=== PATIENT | female | born 1945 | race Hispanic/Latino ===

== ENCOUNTER 2016-10-14 19:10 | Emergency (ER) | payer MEDICAID, MEDICARE ==
[2016-10-14 19:46] VITALS: BP 125/73; PULSE 99; RESP 20; TEMP 98.9; O2SAT 94
== END 2016-10-14 19:50 | disposition left against medical advice (07) ==
LOC: C.ER 19:10
DX: M79.89 Other specified soft tissue disorders (principal); Z02.9 Encounter for administrative examinations, unspecified

== ENCOUNTER 2016-10-24 04:13 | Emergency (ER) | payer MEDICARE ==
[2016-10-24 04:22] VITALS: BMI 28.8
--- NOTE | 2016-10-24 04:22 | C.PDOC ---
History Of Present Illness Patient presents to the ER with a complaint of SOB over the past 2 days. Patient states she still smokes a pack of cigarettes a days for the last 57 years. Patient is currently speaking in complete sentences; denies fever, chills , nausea, or vomiting. Time Seen by Provider: 10/24/16 04:19 History Per: Patient Onset/Duration Of Symptoms: Days Current Symptoms Are (Timing): Still Present Initiating Event: Other (Not known) Current Respiratory Medications: None Associated Symptoms: denies: Fever, Chills, Chest Pain Recent travel outside of the [place]: No Past Medical History Reviewed: Historical Data, Nursing Documentation, Vital Signs Vital Signs: Last Vital Signs Temp 98.4 F 10/24/16 04:24 Pulse 110 H 10/24/16 06:20 Resp 14 10/24/16 06:20 BP 112/67 10/24/16 04:24 Pulse Ox 94 L 10/24/16 05:48 - Medical History PMH: Hyperlipidemia Surgical History: No Surg Hx Family History: States: No Known Family Hx - Social History Hx Alcohol Use: No Hx Substance Use: No - Immunization History Hx Tetanus Toxoid Vaccination: No Hx Influenza Vaccination: No Hx Pneumococcal Vaccination: No Review Of Systems Constitutional: Negative for: Fever, Chills Cardiovascular: Negative for: Chest Pain, Palpitations Respiratory: Positive for: Shortness of Breath Gastrointestinal: Negative for: Nausea, Vomiting Physical Exam - Physical Exam Appears: Non-toxic Skin: Warm, Dry Oral Mucosa: Moist Chest: Symmetrical, No Tenderness Cardiovascular: Rhythm Regular, No Murmur Respiratory: No Rales, Rhonchi (Scattered at bases), No Wheezing Gastrointestinal/Abdominal: Soft, No Tenderness Extremity: Pedal Edema (Bilateral) Neurological/Psych: Oriented x3 ED Course And Treatment - Laboratory Results Result Diagrams: 10/24/16 04:45 10/24/16 04:45 ECG: Interpreted By Me, Viewed By Me ECG Rhythm: Sinus Rhythm (73), Nonspecific Changes O2 Sat by Pulse Oximetry: 94 Pulse Ox Interpretation: Normal - Radiology CXR: Interpreted by Me, Viewed By Me CXR Interpretation: No: Infiltrates, Fracture, Pnemothorax Progress Note: EKG, blood work, CXR, and urinalysis ordered. Solumedrol and nebulizer treatment administered. Reevaluation Time: 06:25 Reassessment Condition: Improved Disposition Counseled Patient/Family Regarding: Studies Performed, Diagnosis, Need For Followup, Rx Given, Smoking Cessation - Disposition Referrals: [facility] at [facility] [Outside] Disposition: HOME/ ROUTINE Disposition Time: 04:21 Condition: FAIR Prescriptions: Albuterol HFA [Ventolin HFA 90 mcg/actuation (8 g)] 2 puff IH [id number] #1 puff Azithromycin [Zithromax Tri-Albino] 500 mg PO DAILY #3 tablet Instructions: Alcohol Intoxication (ED) - Clinical Impression Clinical Impression: Alcohol abuse, Cough - Scribe Statement The provider has reviewed the documentation as recorded by the Scribe Xander Aponte All medical record entries made by the Scribe were at my direction and personally dictated by me. I have reviewed the chart and agree that the record accurately reflects my personal performance of the history, physical exam, medical decision making, and the department course for this patient. I have also personally directed, reviewed, and agree with the discharge instructions and disposition.
[2016-10-24 04:27] VITALS: TEMP 98.4
[2016-10-24] MEDS: Albuterol-Ipratrop 3 mg / 0.5 (3 ml) UD IH SCH ×3 (04:45→05:14)
[2016-10-24 04:47] LABS: BASO # 0.1 K/uL (0.0-0.2); BASO % 0.9 % (0.0-2.0); EOS # 0.1 K/uL (0.0-0.7); EOS % 0.8 % (0.0-4.0); LYMPH # 1.5 K/uL (1.0-4.3); LYMPH % 18.9 % (20.0-40.0); MEAN CELL VOLUME 92.5 fL (81.0-99.0); MEAN CORPUSCULAR HEMOGLOBIN 31.3 pg (27.0-31.0); MEAN CORPUSCULAR HGB CONC 33.8 g/dL (33.0-37.0); MEAN PLATELET VOLUME 9.2 fL (7.2-11.7); MONO # 0.5 K/uL (0.0-0.8); MONO % 6.6 % (0.0-10.0); NRBC % 0.1 % (0.0-2.0); RED CELL DISTRIBUTION WIDTH 20.2 % (11.5-14.5); WHITE BLOOD COUNT 7.8 K/uL (4.8-10.8)
[2016-10-24] MEDS ORDERED: Albuterol-Ipratrop 3 mg / 0.5 (3 ml) UD ONE ×3 (04:55)
[2016-10-24 04:56] LABS: CHLORIDE 103 mmol/L (98-107); SODIUM 140 mmol/L (132-148)
[2016-10-24 04:57] LABS: POTASSIUM 4.5 mmol/L (3.6-5.2)
[2016-10-24 04:59] LABS: ALB/GLOB RATIO 1.1 (1.0-2.1); ALKALINE PHOSPHATASE 82 U/L (38-126); ALT/SGPT 29 U/L (9-52); AST/SGOT 40 U/L (14-36); BILIRUBIN,TOTAL 0.5 mg/dL (0.2-1.3); BLOOD UREA NITROGEN 12 mg/dL (7-17); CARBON DIOXIDE 21 mmol/L (22-30); GFR AFRICAN-AMERICAN > 60; GLUCOSE,RANDOM 97 mg/dL (65-105); TOTAL PROTEIN 6.6 g/dL (6.3-8.3)
[2016-10-24 05:00] LABS: ALCOHOL SERUM 228 mg/dl (0-10); CALCIUM 8.5 mg/dl (8.6-10.4)
[2016-10-24 06:23] VITALS: RESP 14
[2016-10-24 06:30] VITALS: BP 126/94; PULSE 100; O2SAT 96
--- NOTE | 2016-10-24 07:27 | RAD ---
PROCEDURE: CHEST RADIOGRAPH, 1 VIEW HISTORY: SOB COMPARISON: None available. FINDINGS: LUNGS: No infiltrate. Linear atelectasis is seen at the inferior left lung zone laterally versus fibrosis minimally.. PLEURA: No pneumothorax or pleural fluid seen. Limited elevation left hemidiaphragm is identified. CARDIOVASCULAR: Cardiac silhouette appears prominent. No pulmonary vascular derangement. OSSEOUS STRUCTURES: No significant abnormalities. VISUALIZED UPPER ABDOMEN: Normal. OTHER FINDINGS: None. IMPRESSION: No acute infiltrate or pleural effusion identified. Prominent cardiac silhouette identified without pulmonary vascular derangement.
--- NOTE | 2016-10-26 12:29 | CARD ---
APPROVED REPORT EKG Measurement Heart [id number] 162P32 [id number] <Conclusion> Normal sinus rhythm Normal ECG
== END 2016-10-24 06:37 | disposition home or self-care (01) ==
LOC: C.ER 04:13
DX: F10.120 Alcohol abuse with intoxication, uncomplicated (principal); Y90.7 Blood alcohol level of 200-239 mg/100 ml; R05 Cough; F17.210 Nicotine dependence, cigarettes, uncomplicated
CPT/HCPCS: 71010; 80053; 83880; 84484; 85025; 93005; 94640; 96374; 99284; G0480; J2930

== ENCOUNTER 2017-04-16 10:03 | Emergency (ER) | payer MEDICARE ==
[2017-04-16 10:04] VITALS: BMI 28.8
[2017-04-16] MEDS ORDERED: Sodium Chloride 0.9% 1,000 ML IV ONE (11:04)
[2017-04-16 11:34] LABS: BASO % 0.5 % (0.0-2.0); EOS % 0.1 % (0.0-4.0); HEMOGLOBIN 12.6 g/dL (11.0-16.0); LYMPH # 1.1 K/uL (1.0-4.3); LYMPH % 13.5 % (20.0-40.0); MEAN CORPUSCULAR HEMOGLOBIN 31.2 pg (27.0-31.0); MEAN CORPUSCULAR HGB CONC 35.7 g/dL (33.0-37.0); MEAN PLATELET VOLUME 9.9 fL (7.2-11.7); MONO # 0.3 K/uL (0.0-0.8); MONO % 4.1 % (0.0-10.0); NEUT # 6.5 K/uL (1.8-7.0); NEUT % 81.8 % (50.0-75.0); RBC 4.04 Mil/uL (3.80-5.20); RED CELL DISTRIBUTION WIDTH 14.5 % (11.5-14.5)
[2017-04-16 11:42] LABS: ALB/GLOB RATIO 1.2 (1.0-2.1); ALBUMIN 4.2 g/dL (3.5-5.0); CALCIUM 9.6 mg/dl (8.6-10.4); GFR AFRICAN-AMERICAN > 60; GFR NON-AFRICAN AMERICAN > 60; LIPASE 44 U/L (23-300)
[2017-04-16 11:43] LABS: MEAN CELL VOLUME 87.5 fL (81.0-99.0)
[2017-04-16 11:45] LABS: ALT/SGPT 17 U/L (9-52); AST/SGOT 23 U/L (14-36); BLOOD UREA NITROGEN 16 mg/dL (7-17)
--- NOTE | 2017-04-16 11:56 | C.PDOC ---
History Of Present Illness 72-year-old female, presents to the emergency department with complaints of nausea, associated with several episodes of non-bloody/non-bilious vomiting since 03:00 this morning. Patient notes mild diffuse abdominal pain. Denies fever, cough, sore throat, chills, chest pain, shortness of breath, or any other associated symptoms. No other complaints at this time. Time Seen by Provider: 04/16/17 10:22 Chief Complaint (Nursing): GI Problem History Per: Patient History/Exam Limitations: no limitations Onset/Duration Of Symptoms: Hrs Current Symptoms Are (Timing): Still Present Severity: Moderate Past Medical History Reviewed: Historical Data, Nursing Documentation, Vital Signs Vital Signs: Last Vital Signs Temp Pulse 62 04/16/17 12:43 Resp 16 04/16/17 12:43 BP 120/88 04/16/17 12:43 Pulse Ox 99 04/16/17 12:43 - Medical History PMH: Hyperlipidemia Surgical History: Cholecystectomy Family History: States: No Known Family Hx - Social History Hx Alcohol Use: No Hx Substance Use: No - Immunization History Hx Tetanus Toxoid Vaccination: No Hx Influenza Vaccination: No Hx Pneumococcal Vaccination: No Review Of Systems Except As Marked, All Systems Reviewed And Found Negative. Constitutional: Negative for: Fever, Chills Cardiovascular: Negative for: Chest Pain, Palpitations Respiratory: Negative for: Shortness of Breath Gastrointestinal: Positive for: Nausea, Vomiting, Abdominal Pain. Negative for : Diarrhea Genitourinary: Negative for: Dysuria, Vaginal Discharge, Vaginal Bleeding, Pelvic Pain Musculoskeletal: Negative for: Back Pain Skin: Negative for: Rash Neurological: Negative for: Weakness, Numbness, Headache, Dizziness Physical Exam - Physical Exam Appears: Non-toxic, No Acute Distress Skin: Normal Color, Warm, Dry, No Rash Head: Atraumatic, Normacephalic Eye(s): bilateral: Normal Inspection, PERRL, EOMI Nose: Normal Oral Mucosa: Moist Lips: Normal Appearing Neck: Normal ROM, Supple Chest: Symmetrical Cardiovascular: Rhythm Regular, No Friction Rub, No Murmur Respiratory: Normal Breath Sounds, No Accessory Muscle Use Gastrointestinal/Abdominal: Bowel Sounds (acute), Soft, No Tenderness, No Guarding, No Rebound Back: Normal Inspection, No CVA Tenderness Extremity: Normal ROM, No Swelling Neurological/Psych: Oriented x3, Normal Speech, Normal Cranial Nerves, Normal Motor Gait: Steady ED Course And Treatment - Laboratory Results Result Diagrams: 04/16/17 11:27 04/16/17 11:27 O2 Sat by Pulse Oximetry: 99 (on RA) Pulse Ox Interpretation: Normal Medical Decision Making Medical Decision Making: Plan: * Labs * XR Obstructive Series * Reassess and Disposition Temp: 98.8. Patient with normal vitals and physical exam is WNLs. Normal Lactic acid level and no evidence of sepsis. On re-exam, the patient reports improvement of symptoms. Lungs are CTA, heart is RRR, abdomen is soft, non-tender and is tolerating PO well. Ambulatory in the ED with steady gait. Follow up with the medical doctor within 1-2 days without fail. Return if worsened. Disposition - Disposition Referrals: [facility] at [facility] [Outside] Disposition: HOME/ ROUTINE Disposition Time: 12:48 Condition: GOOD Additional Instructions: Follow up with the medical doctor within 1-2 days without fail. Return if worsened. Prescriptions: Acetaminophen [Tylenol] 325 mg PO Q6 PRN #30 tab PRN Reason: Pain, Mild (1-3) Instructions: Viral Syndrome (DC) Forms: [employer] (Citizen [place]) - POA Present On Arrival: None - Clinical Impression Clinical Impression: Viral syndrome, Vomiting - Scribe Statement The provider has reviewed the documentation as recorded by the Scribe (Mike Huddleston) All medical record entries made by the Scribe were at my direction and personally dictated by me. I have reviewed the chart and agree that the record accurately reflects my personal performance of the history, physical exam, medical decision making, and the department course for this patient. I have also personally directed, reviewed, and agree with the discharge instructions and disposition.
--- NOTE | 2017-04-16 12:23 | RAD ---
PROCEDURE: Radiographs of the chest and abdomen (obstructive series) HISTORY: vomiting, abd pain COMPARISON: No prior. TECHNIQUE: AP radiograph of the chest, with upright and supine radiographs of the abdomen. FINDINGS: CHEST: Lungs: Clear. Cardiovascular: Normal size heart. No pulmonary vascular congestion. Pleura: No pleural fluid. No pneumothorax. Other findings: None. ABDOMEN AND PELVIS: Bowel: Unremarkable bowel gas pattern. No evidence of mechanical obstruction. Free air: None. Bones: Unremarkable. Other findings: None. IMPRESSION: Unremarkable radiographs of chest and abdomen. No evidence of mechanical bowel obstruction.
[2017-04-16] MEDS ORDERED: Alum-Mag Hydrox-Simethicone Susp (30 mL) PO STA (12:30)
[2017-04-16 12:43] VITALS: BP 120/88; PULSE 62; RESP 16; O2SAT 99
== END 2017-04-16 12:56 | disposition home or self-care (01) ==
LOC: C.ER 10:03
DX: B34.9 Viral infection, unspecified (principal); R11.10 Vomiting, unspecified; E78.5 Hyperlipidemia, unspecified
CPT/HCPCS: 74022; 80053; 83605; 83690; 85025; 96361; 96374; 96375; 99284; J2405; J7040

== ENCOUNTER 2017-04-20 13:35 | Emergency (ER) | payer MEDICARE, OTHER ==
[2017-04-20 13:35] VITALS: BMI 28.8
[2017-04-20 13:57] VITALS: BP 111/61; PULSE 93; RESP 16; TEMP 97.7; O2SAT 95
--- NOTE | 2017-04-20 14:38 | C.PDOC ---
History Of Present Illness 72 y/o female brought to ED by BLS status post falling in her apartment. Patient states she lost her balance and fell, denies any injury or pain. She admits to drinking alcohol. Patient is in no acute distress, does not want to be in ED, offers no complaints and is walking around. Time Seen by Provider: 04/20/17 14:08 Chief Complaint (Nursing): Medical Clearance History Per: Patient History/Exam Limitations: no limitations Onset/Duration Of Symptoms: Hrs Current Symptoms Are (Timing): Still Present Past Medical History Reviewed: Historical Data, Nursing Documentation, Vital Signs Vital Signs: Last Vital Signs Temp 97.7 F 04/20/17 13:40 Pulse 93 H 04/20/17 13:40 Resp 16 04/20/17 13:40 BP 111/61 04/20/17 13:40 Pulse Ox 95 04/20/17 14:52 - Medical History PMH: Depression, Hyperlipidemia Surgical History: Cholecystectomy Family History: States: No Known Family Hx - Social History Hx Alcohol Use: Yes Hx Substance Use: No - Immunization History Hx Tetanus Toxoid Vaccination: No Hx Influenza Vaccination: No Hx Pneumococcal Vaccination: No Review Of Systems Constitutional: Negative for: Fever, Chills Eyes: Negative for: Vision Change Gastrointestinal: Negative for: Nausea, Vomiting Skin: Negative for: Rash Physical Exam - Physical Exam Appears: Non-toxic, No Acute Distress Skin: Warm, Dry, No Rash Head: Atraumatic, Normacephalic Eye(s): bilateral: Normal Inspection, PERRL, EOMI Nose: Normal, No Flaring Oral Mucosa: Moist, Other (alcohol on breath) Neck: Normal ROM, Supple Chest: Symmetrical Cardiovascular: Rhythm Regular, No Murmur Respiratory: Normal Breath Sounds, No Rales, No Rhonchi, No Wheezing Gastrointestinal/Abdominal: Soft, No Tenderness, No Guarding, No Rebound Back: Normal Inspection, No Vertebral Tenderness, No Paraspinal Tenderness Extremity: Normal ROM, No Tenderness, No Deformity, No Swelling Neurological/Psych: Oriented x3, Normal Speech Gait: Steady ED Course And Treatment O2 Sat by Pulse Oximetry: 95 (RA) Pulse Ox Interpretation: Normal Medical Decision Making Medical Decision Making: Patient for medical evaluation after fall, and is ETOH Patient is already ambulatory with steady gait. She offers no complaints Accucheck ordered. Patient is stable for discharge Disposition Counseled Patient/Family Regarding: Diagnosis, Need For Followup - Disposition Disposition: HOME/ ROUTINE Disposition Time: 14:37 Condition: STABLE Additional Instructions: Follow up with your primary medical doctor or clinic in 2-5 days for further evaluation. Instructions: Effects of Alcohol on Your Health Forms: [employer] (Maori) - POA Present On Arrival: None - Clinical Impression Clinical Impression: Alcohol intoxication - [place] / [place] / Resident Statement MD/DO has reviewed & agrees with the documentation as recorded. - Scribe Statement The provider has reviewed the documentation as recorded by the Julianoibcamilla Peterson All medical record entries made by the Ilan were at my direction and personally dictated by me. I have reviewed the chart and agree that the record accurately reflects my personal performance of the history, physical exam, medical decision making, and the department course for this patient. I have also personally directed, reviewed, and agree with the discharge instructions and disposition.
== END 2017-04-20 14:46 | disposition home or self-care (01) ==
LOC: C.ER 13:35
DX: F10.129 Alcohol abuse with intoxication, unspecified (principal); Y90.9 Presence of alcohol in blood, level not specified

== ENCOUNTER 2017-12-29 19:34 | Emergency (ER) | payer MEDICARE, OTHER ==
[2017-12-29 19:35] VITALS: BMI 28.8
[2017-12-29 19:57] VITALS: RESP 18; TEMP 98
--- NOTE | 2017-12-29 20:57 | C.PDOC ---
History Of Present Illness 72 year old female with a history of smoking 3 cigarettes a day, cardiac disease and GA (10 years ago and 3 weeks ago) presents to the ED for evaluation of sudden onset of shortness of breath that began tonight. Patient reports she was watching television smoking a cigarette when the symptoms began. She notes having chronic peripheral edema and has a "machine that pumps the fluid out of my legs". Also notes she is not able to sleep flat, only with 2-3 pillows. She admits she is trying to quit smoking. Denies chest pain, headache, fever, nausea, vomiting, and any other associated symptoms. Time Seen by Provider: 12/29/17 20:32 Chief Complaint (Nursing): Shortness Of Breath History Per: Patient History/Exam Limitations: no limitations Onset/Duration Of Symptoms: Mins Current Symptoms Are (Timing): Still Present Past Medical History Reviewed: Historical Data, Nursing Documentation, Vital Signs Vital Signs: Last Vital Signs Temp 98 F 12/29/17 19:54 Pulse 95 H 12/29/17 19:42 Resp 18 12/29/17 19:56 BP 148/79 12/29/17 19:42 Pulse Ox 93 L 12/29/17 19:42 - Medical History PMH: CAD, COPD, Depression, Hyperlipidemia Denies: Diabetes, Hepatitis, HIV, HTN Other PMH: GA Surgical History: Cholecystectomy Family History: States: Unknown Family Hx - Social History Hx Tobacco Use: Yes (3 cigarettes.) Hx Alcohol Use: Yes Hx Substance Use: No - Immunization History Hx Tetanus Toxoid Vaccination: No Hx Influenza Vaccination: No Hx Pneumococcal Vaccination: No Review Of Systems Constitutional: Negative for: Fever Cardiovascular: Negative for: Chest Pain Respiratory: Positive for: Shortness of Breath Gastrointestinal: Negative for: Nausea, Vomiting Neurological: Negative for: Headache Physical Exam - Physical Exam Appears: Well, Non-toxic, No Acute Distress, Other (comfortable.) Skin: Normal Color, Warm, Dry Head: Atraumatic, Normacephalic Eye(s): bilateral: Normal Inspection Oral Mucosa: Moist Neck: Normal ROM, Supple Chest: Symmetrical, No Deformity Cardiovascular: Rhythm Regular, No Murmur Respiratory: Decreased Breath Sounds, Rales (at the base.) Gastrointestinal/Abdominal: Normal Exam, Soft, No Tenderness Extremity: Normal ROM (x4), No Tenderness, No Pedal Edema, No Calf Tenderness, Capillary Refill (less than 2 seconds.), No Deformity Pulses: Left Dorsalis Pedis: Normal, Right Dorsalis Pedis: Normal Neurological/Psych: Oriented x3, Other (speaking full sentences.) ED Course And Treatment - Laboratory Results Result Diagrams: 12/29/17 21:07 12/29/17 21:07 Lab Interpretation: No Acute Changes ECG: Interpreted By Me ECG Rhythm: 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 Patient is able to lie supine at 30 degrees with no distress.) Medical Decision Making Medical Decision Making: Plan: -EKG -Blood sent. -CXR Disposition Counseled Patient/Family Regarding: Studies Performed, Diagnosis, Need For Followup - Disposition Referrals: Karlene Kaufman MD [Non-Staff] - Disposition: HOME/ ROUTINE Disposition Time: 22:24 Condition: IMPROVED Instructions: Shortness of Breath (Dyspnea) (DC) Forms: [employer] (Bahamian) - Clinical Impression Clinical Impression: Dyspnea - Scribe Statement The provider has reviewed the documentation as recorded by the Ilan Carter Provider Attestation: All medical record entries made by the Julianoibcamilla were at my direction and personally dictated by me. I have reviewed the chart and agree that the record accurately reflects my personal performance of the history, physical exam, medical decision making, and the department course for this patient. I have also personally directed, reviewed, and agree with the discharge instructions and disposition.
[2017-12-29 21:13] LABS: BASO # 0.1 K/uL (0.0-0.2); BASO % 0.7 % (0.0-2.0); EOS # 0.1 K/uL (0.0-0.7); EOS % 1.7 % (0.0-4.0); HEMOGLOBIN 11.4 g/dL (11.0-16.0); LYMPH # 2.1 K/uL (1.0-4.3); LYMPH % 23.5 % (20.0-40.0); MEAN CELL VOLUME 87.3 fL (81.0-99.0); MEAN CORPUSCULAR HEMOGLOBIN 30.2 pg (27.0-31.0); MEAN CORPUSCULAR HGB CONC 34.6 g/dL (33.0-37.0); MEAN PLATELET VOLUME 9.6 fL (7.2-11.7); MONO # 0.6 K/uL (0.0-0.8); MONO % 6.5 % (0.0-10.0); NEUT % 67.6 % (50.0-75.0); RBC 3.79 Mil/uL (3.80-5.20); RED CELL DISTRIBUTION WIDTH 15.5 % (11.5-14.5); WHITE BLOOD COUNT 8.9 K/uL (4.8-10.8)
[2017-12-29 21:32] LABS: ALB/GLOB RATIO 1.3 (1.0-2.1); ALBUMIN 3.5 g/dL (3.5-5.0); ALT/SGPT 15 U/L (9-52); AST/SGOT 23 U/L (14-36); BLOOD UREA NITROGEN 14 mg/dL (7-17); CALCIUM 8.7 mg/dl (8.6-10.4); GFR NON-AFRICAN AMERICAN > 60
[2017-12-29 21:43] LABS: B-TYPE NATRIURETIC PEPTIDE 429 pg/mL (0-900)
[2017-12-29 21:57] VITALS: BP 136/79; PULSE 78
[2017-12-29 22:20] VITALS: O2SAT 93
--- NOTE | 2017-12-30 10:28 | RAD ---
Date of service: 12/29/2017 HISTORY: Shortness of breath COMPARISON: 10/24/2016 FINDINGS: LUNGS: Mild venous congestion. Bilateral hilar prominence. Mild linear atelectasis in the right infrahilar region. Biapical pleural thickening. PLEURA: No significant pleural effusion identified, no pneumothorax apparent. CARDIOVASCULAR: Aortic atherosclerotic calcification present. Normal cardiac size. No pulmonary vascular congestion. OSSEOUS STRUCTURES: Degenerative changes in the spine. VISUALIZED UPPER ABDOMEN: Normal. OTHER FINDINGS: None. IMPRESSION: Mild venous congestion. Bilateral hilar prominence. Mild linear atelectasis in the right infrahilar region. Biapical pleural thickening.
--- NOTE | 2017-12-30 12:04 | CARD ---
APPROVED REPORT Date of service: 12/29/2017 EKG Measurement Heart [id number] 154P85 [id number] <Conclusion> Normal sinus rhythm Inferior infarct, age undetermined Abnormal ECG non specific st t changes
== END 2017-12-29 22:36 | disposition home or self-care (01) ==
LOC: C.ER 19:34
DX: R06.00 Dyspnea, unspecified (principal)

== ENCOUNTER 2018-01-06 16:33 | Emergency (ER) | payer MEDICARE, OTHER ==
[2018-01-06 16:34] VITALS: BMI 28.8
--- NOTE | 2018-01-06 17:33 | C.PDOC ---
History Of Present Illness 73 y/o female with history of depression, CAD and COPD presents to ED with c/o right sided chest pain since this afternoon and cough, congestion for 2 days. Patient seen at ED 2 days ago and had full work up within normal limits. Patient denies fever, chills, nausea, vomiting, diarrhea, sob, leg swelling or any other complaints at this time. Time Seen by Provider: 01/06/18 17:15 Chief Complaint (Nursing): Chest Pain History Per: Patient History/Exam Limitations: no limitations Onset/Duration Of Symptoms: Days Current Symptoms Are (Timing): Still Present Past Medical History Reviewed: Historical Data, Nursing Documentation, Vital Signs Vital Signs: Last Vital Signs Temp 98.7 F 01/06/18 16:43 Pulse 101 H 01/06/18 16:43 Resp 26 H 01/06/18 16:43 BP 131/68 01/06/18 16:43 Pulse Ox 94 L 01/06/18 16:43 - Medical History PMH: CAD, COPD, Depression, Hyperlipidemia Surgical History: Cholecystectomy Family History: States: Unknown Family Hx - Social History Hx Tobacco Use: Yes (3 cigarettes.) Hx Alcohol Use: Yes Hx Substance Use: No - Immunization History Hx Tetanus Toxoid Vaccination: Yes Hx Influenza Vaccination: No Hx Pneumococcal Vaccination: Yes (2018) Review Of Systems Constitutional: Negative for: Fever, Chills ENT: Positive for: Nose Congestion Cardiovascular: Positive for: Chest Pain. Negative for: Palpitations Respiratory: Positive for: Cough. Negative for: Shortness of Breath Gastrointestinal: Negative for: Nausea, Vomiting Skin: Negative for: Rash Physical Exam - Physical Exam Appears: Non-toxic, No Acute Distress Skin: Warm, Dry, No Rash Head: Atraumatic, Normacephalic Eye(s): bilateral: Normal Inspection Oral Mucosa: Moist Chest: Tenderness (right chest wall), No Ecchymosis Cardiovascular: Rhythm Regular Respiratory: Normal Breath Sounds, No Rales, No Rhonchi, Wheezing (minimal scattered) Gastrointestinal/Abdominal: Soft, No Tenderness, No Guarding, No Rebound Extremity: Normal ROM, No Pedal Edema, Capillary Refill (<2 seconds) Neurological/Psych: Oriented x3, Normal Speech, Normal Cognition ED Course And Treatment - Laboratory Results Result Diagrams: 01/06/18 17:41 01/06/18 17:41 O2 Sat by Pulse Oximetry: 94 (RA) Medical Decision Making Medical Decision Making: ro acs, pna, chf. atypcial cp. ttp on exam. labs trop neg. pain impreoved. pt eating po in nad. cxr neg. minimal leukocytosis. lungs cta . asking for dc. Disposition - Disposition Disposition: HOME/ ROUTINE Disposition Time: 19:17 Condition: STABLE Additional Instructions: return to er with worsening symptoms or concerns. please discuss all labs with your doctor. Instructions: Chest Pain, Viral Syndrome (DC) Forms: [employer] ([place]ayan) - Clinical Impression Clinical Impression: Viral syndrome, Leukocytosis, Chest pain - Scribe Statement The provider has reviewed the documentation as recorded by the Julianoibcamilla Peterson All medical record entries made by the Julianoibcamilla were at my direction and personally dictated by me. I have reviewed the chart and agree that the record accurately reflects my personal performance of the history, physical exam, medical decision making, and the department course for this patient. I have also personally directed, reviewed, and agree with the discharge instructions and disposition.
[2018-01-06 17:44] LABS: BASO % 0.3 % (0.0-2.0); HEMOGLOBIN 10.7 g/dL (11.0-16.0); LYMPH # 1.3 K/uL (1.0-4.3); LYMPH % 11.1 % (20.0-40.0); MEAN CELL VOLUME 87.4 fL (81.0-99.0); MEAN CORPUSCULAR HEMOGLOBIN 30.3 pg (27.0-31.0); MEAN CORPUSCULAR HGB CONC 34.7 g/dL (33.0-37.0); MEAN PLATELET VOLUME 9.3 fL (7.2-11.7); MONO # 1.2 K/uL (0.0-0.8); NEUT # 9.1 K/uL (1.8-7.0); NEUT % 78.6 % (50.0-75.0); RBC 3.54 Mil/uL (3.80-5.20); RED CELL DISTRIBUTION WIDTH 15.8 % (11.5-14.5); WHITE BLOOD COUNT 11.5 K/uL (4.8-10.8)
[2018-01-06 17:54] LABS: INR 1.2
[2018-01-06 18:02] LABS: ALB/GLOB RATIO 1.2 (1.0-2.1); ALBUMIN 3.7 g/dL (3.5-5.0); ALT/SGPT 20 U/L (9-52); AST/SGOT 28 U/L (14-36); BLOOD UREA NITROGEN 9 mg/dL (7-17); CALCIUM 8.2 mg/dl (8.6-10.4); GFR NON-AFRICAN AMERICAN > 60
[2018-01-06 18:09] LABS: B-TYPE NATRIURETIC PEPTIDE 842 pg/mL (0-900)
--- NOTE | 2018-01-06 19:04 | RAD ---
Date of service: 01/06/2018 HISTORY: chest pain COMPARISON: Portable chest 12/29/2017. FINDINGS: LUNGS: No active pulmonary disease. PLEURA: No significant pleural effusion identified, no pneumothorax apparent. CARDIOVASCULAR: Calcific atherosclerotic changes are seen related to the thoracic aorta. Cardiac silhouette appears stable. No pulmonary vascular congestion. OSSEOUS STRUCTURES: No significant abnormalities. VISUALIZED UPPER ABDOMEN: Normal. OTHER FINDINGS: None. IMPRESSION: No interval acute cardiopulmonary disease appreciated.
[2018-01-06 19:17] VITALS: BP 144/67; PULSE 88; RESP 18; TEMP 98.2
[2018-01-06 23:00] VITALS: O2SAT 94
--- NOTE | 2018-01-07 23:41 | CARD ---
APPROVED REPORT Date of service: 01/06/2018 EKG Measurement Heart [id number] <Conclusion> Normal sinus rhythm ST & T wave abnormality, consider anterolateral ischemia Abnormal ECG
== END 2018-01-06 19:32 | disposition home or self-care (01) ==
LOC: C.ER 16:33
DX: R07.89 Other chest pain (principal); B34.9 Viral infection, unspecified; D72.829 Elevated white blood cell count, unspecified; F17.210 Nicotine dependence, cigarettes, uncomplicated